=== PATIENT | male | born 1980 | race Caucasian/White ===

== ENCOUNTER → 2023-04-05 10:22 | Outpatient (CLI) | payer BC, SELFPAY ==
--- NOTE | 2023-04-05 10:28 | MR_ITS ---
FINAL REPORT CLINICAL HISTORY: AVASCULAR NECROSIS OF BONE. RIGHT HIP PAIN [id number]. NO INJURY OR TRAUMA FINDINGS: Multiplanar MR imaging of the right hip was performed without contrast. There is no evidence of fracture or dislocation. 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 There is AVN of the inferior superior right femoral head measuring up to 30 mm in transverse dimension and of the superior left femoral head measuring up to 23 mm in transverse dimension. There is a subchondral cyst in the superior right acetabulum with adjacent bone marrow edema. No labral tear is identified. A moderate right hip joint effusion is seen. The tendons are intact. The musculature is intact. Urinary bladder wall thickening is seen which is likely inflammatory. There is a heterogeneous mass in the left inguinal canal measuring 34 mm which is of uncertain etiology. Findings could represent neoplasm or abnormal left testicle. IMPRESSION: Bilateral AVN of the femoral heads, right greater than left. 34 mm mass in the left inguinal canal which could represent neoplasm or abnormal left testicle. Consider correlation with ultrasound. Reviewed, Interpreted and Dictated by Harish Nur III, MD Transcribed by Aiyana Graff Authenticated and . [facility]
== END ==
LOC: RAD 10:22
PROVIDERS: PCP Family Medicine; Visit Provider Family Medicine
DX: M25.551 Pain in right hip (principal); M87.80 Other osteonecrosis, unspecified bone
CPT/HCPCS: 73721